=== PATIENT | female | born 1955 | race Caucasian/White ===

== ENCOUNTER 2020-01-19 16:29 | Emergency (ER) | payer OTHER, SELFPAY ==
[2020-01-19 16:30] VITALS: BP 140/90; PULSE 87; RESP 15; TEMP 36.3; O2SAT 97; BMI 24.0
--- NOTE | 2020-01-19 17:42 | RAD_ITS ---
STUDY: X-RAY - LUMBAR SPINE REASON FOR EXAM: Female, 64 years old. FALL TODAY OFF DECORATIVE BRIDGE OVER WATER FEATURE IN THEIR LANDSCAPE. LANDED ON RT POSTERIOR UPPER ILIAC CREST AREA. PAIN THERE AND IN LOWER BACK RADIATING SUPERIOR. TECHNIQUE: 3 view(s) of the lumbar spine were obtained. COMPARISON: None FINDINGS: Normal lumbar lordosis. There is no substantial scoliosis. There is a normal alignment of the vertebrae. Normal vertebral bodies and endplates. Degenerative disc disease at the L5-S1 level. Diffuse facet disease. Vascular calcifications. RAD/Lumbar Spine 2 or 3 Views IMPRESSION: No acute osseous injury is evident. If there is further clinical concern for a radiographically occult spinal fracture, consider CT correlation if possible. Electronically Signed: Armen Law MD at 18:26 EDT Tel , Service support ,
[2020-01-19] MEDS: Morphine 4 MG/ML Syringe IM (17:43)
[2020-01-19 17:45] VITALS: O2SAT 98
--- NOTE | 2020-01-19 17:51 | ED.VISSUMM ---
- ER Visit Summary Date of Service: 01/19/20 Chief Complaint: Back pain History of Present Illness: The patient is a 64 F who presents with back pain that began today. Patient slipped and fell in her yard today. Patient states she fell backwards and landed on a wooden bridge. Patient states her pain is localized to the lower lumbar area. Patient describes the pain as sharp, aching, and throbbing. Patient states the pain is worse with standing, walking, and sitting. Patient states the pain is better when she lays flat. Patient states she has some paresthesias going down her right leg. Patient denies any weakness. Patient denies any bowel or bladder changes. Patient denies any head injury or loss of consciousness. Patient denies any saddle anesthesia. Physical Examination: Vital signs are stable. Patient is afebrile. Patient is in no acute distress. Musculoskeletal exam reveals tenderness over the right lumbar paraspinal muscles. There is some mild midline tenderness. There is some mild tenderness over the right iliac crest area. There is no obvious deformity noted. Range of motion was limited in all motions of the lumbar spine secondary to pain. Strength is 5/5 bilateral lower extremities. There are no sensory deficits noted. Test Results: X-rays of the lumbar spine were obtained. There is no acute fracture. These were interpreted by the radiologist and reviewed by myself. Emergency Department Course and Treatment: Patient was given a dose of morphine here. Patient is feeling better on reevaluation. Patient was given a prescription for Percocet. Patient was also given a prescription for Valium to take as a muscle relaxer at bedtime as needed. Patient was instructed to use ice to the area. Patient was instructed to follow-up with her primary care physician in 5 to 7 days. Patient understood and was agreeable with the plan. All questions were answered. Disposition: Discharge home Impression: 1. Lumbosacral strain This note was generated with [employer] dictation software. It may contain incorrect words, spelling, and punctuation that were not noted in review of the chart prior to signing ED Disposition - Plan for ED Patient: Disposition: Home or Assisted Living Diagnosis: Lumbosacral strain Instructions: ED LUMBAR SPRAIN/STRAIN Prescriptions: Oxycodone HCl/Acetaminophen [Percocet 5/325] 1 tab PO Q6H PRN PRN 3 Days #12 tab PRN Reason: Pain Prescription Printed Diazepam [Valium] 5 mg PO QHS PRN PRN #10 tab PRN Reason: Muscle Spasm Prescription Printed Referrals: Clarence Hodge DO [Primary Care Provider] - 5-7 Days
[2020-01-19 18:42] VITALS: BP 138/4; PULSE 69; RESP 16; O2SAT 97
== END 2020-01-19 18:51 | disposition home or self-care (01) ==
PROVIDERS: Emergency Provider Emergency Medicine; PCP Family Medicine
DX: S39.012A Strain of muscle, fascia and tendon of lower back, initial encounter (principal); W01.0XXA Fall on same level from slipping, tripping and stumbling without subsequent striking against object, initial encounter; E03.9 Hypothyroidism, unspecified; F17.210 Nicotine dependence, cigarettes, uncomplicated
CPT/HCPCS: 72100; 96372; 99281

== ENCOUNTER 2023-01-07 07:51 | Day surgery (SDC) | payer MEDICARE, SELFPAY ==
[2023-01-07] MEDS: Lactated Ringers 1,000 ML 15 ML IV (08:19)
[2023-01-07 08:20] VITALS: BP 145/85; PULSE 73; RESP 16; TEMP 36.7; O2SAT 98; BMI 24.5
--- NOTE | 2023-01-07 09:04 | HP.PCM_ITS ---
HPI - General General Date of Admission: 01/07/23 Date of Service: 01/07/23 Chief Complaint: Screening colonoscopy HPI Narrative ADRIEN HIGGINS, is a 67 F who presents today for screening colonoscopy. She is not have any abdominal pain. She not have any nausea, vomiting or diarrhea. She had a colonoscopy over 10 years ago and it was normal. All other 16 review systems are negative except those are positive mentioned HPI. [facility] Medical History Arthritis Asthma Back pain Cervicalgia Gastric reflux High cholesterol History of ischemic colitis History of pain when walking History of uterine fibroid Hypercholesterolemia Hypertension Injury of head and neck Ischemic colitis Post-menopausal Smoker Thyroid disease Home Medications levothyroxine 75 mcg tablet 75 mcg PO DAILY 01/19/20 [History Last Taken 01/07/23] albuterol sulfate 90 mcg/actuation aerosol inhaler 2 puff inhalation 4X/DAY PRN ASTHMA 11/05/22 [History Last Taken Unknown] ascorbic acid (vitamin C) 500 mg tablet 500 mg PO DAILY 11/05/22 [History Last Taken 01/06/23] cyanocobalamin (vitamin B-12) 5,000 mcg disintegrating tablet 5,000 mcg PO DAILY 11/05/22 [History Last Taken 01/06/23] elderberry fruit 350 mg capsule 350 mg PO DAILY 11/05/22 [History Last Taken 01/06/23] estradiol 0.01% (0.1 mg/gram) vaginal cream (Estrace) 1 g vaginal 2XW 11/05/22 [History Last Taken 01/06/23] fluticasone 250 mcg-salmeterol 50 mcg/dose blistr powdr for inhalation (Wixela Inhub) 1 inh inhalation BID 11/05/22 [History Last Taken 01/07/23] fluticasone propionate 50 mcg/actuation nasal spray,suspension (Children's Flonase Allergy Relief) 1 spray intranasal DAILY PRN allergy symptoms 11/05/22 [History Last Taken Unknown] gemfibrozil 600 mg tablet 600 mg PO BID 11/05/22 [History Last Taken 01/06/23] glucosamine [id number] diamond 1,500 mg-400 unit-100 mg tablet (Osteo Bi- Flex (5-Loxin)) 1 tab PO DAILY 11/05/22 [History Last Taken 01/06/23] loratadine 10 mg tablet (Allergy Relief (loratadine)) 10 mg PO DAILY 11/05/22 [History Last Taken Unknown] montelukast 10 mg tablet (Singulair) 10 mg PO DAILY 11/05/22 [History Last Taken 01/06/23] Allergy/AdvReac Type Severity Reaction Status Date / Time methylprednisolone Allergy Severe Anaphylaxis Verified 01/07/23 08:18 oxycodone [From Roxicodone] Allergy Severe Rash Verified 01/07/23 08:18 atorvastatin Allergy Nausea/Vom/ Verified 01/07/23 08:18 Diarrhea azithromycin Allergy Nausea Verified 01/07/23 08:18 ciprofloxacin Allergy Diarrhea Verified 01/07/23 08:18 Sulfa (Sulfonamide Allergy Hives Verified 01/07/23 08:18 Antibiotics) Statins AdvReac Nausea/Vom/ Uncoded 11/05/22 11:51 Diarrhea Surgical History Hx of colonoscopy Hx of foot surgery Hx of hysterectomy Hx of surgical procedure Social History (Updated 11/05/22 @ 11:32 by Batsheva Rodarte) Smoking Status: Light Smoker (<10/day) ROS Review of Systems ROS Unobtainable: other Constitutional Constitutional: Denies fatigue, fever(s), poor appetite, weight gain or weight loss ENT HEENT: Denies mouth lesions Cardiovascular Cardiovascular: Denies abdominal bloating, abdominal edema or abdominal pain Respiratory/Chest Respiratory/Chest: Denies change in mental status, change in phlegm color, chest congestion or chest tightness Gastrointestinal Gastrointestinal: Denies belching, bloating, change in bowel habits, change in stool character, chewing difficulty, coffee ground emesis, constipation, cramping, diarrhea, dyspepsia, dysphagia, early satiety, excessive flatus, fecal incontinence, heartburn, hematemesis, hematochezia, hemorrhoids, loose stools, melena, nausea, odynophagia, rectal bleeding, tenesmus, vomiting or weight changes Genitourinary Genitourinary: Denies abdominal discomfort, burning urination or itching Musculoskeletal Musculoskeletal: Reports as per HPI; Denies muscle weakness or myalgias Integumentary Integumentary: Denies jaundice Neurologic Neurologic: Denies lack of coordination or weakness Psychiatric Psychiatric: Denies confusion, depression, memory loss, mood swings, paranoia or suicidal ideation Endocrine Endocrinology: Denies systems reviewed and no addt'l complaints, except as documented Hematologic/Lymphatic Hematologic/Lymphatic: Denies anemia, easy bleeding, easy bruising or lymphadenopathy Allergic/Immunologic Allergic/Immunologic: Denies systems reviewed and no addt'l complaints, except as documented Vital Signs Vital Signs Vital Signs: 01/07/23 08:20 01/07/23 08:20 Temperature 98.1 F Temperature Source Temporal Pulse Rate 73 Respiratory Rate 16 Respiratory Pattern Normal Blood Pressure 145/85 H Blood Pressure Mean 105 Blood Pressure Source Monitor Blood Pressure Position Semi-Fowlers Blood Pressure Location Left Arm Pulse Ox 98 Oxygen Delivery Method Room Air Weight Weight: 143 lb 4.807 oz Body Mass Index (BMI) 24.5 Physical Exam Const alert General Appearance: cooperative Orientation / Consciousness: oriented to person HEENT hearing grossly normal bilaterally Head and Scalp: normal to inspection Face and Sinus: face symmetric Nose: external nose normal Mouth: oral and palatal mucosa normal Eyes conjunctivae normal General Eye: normal appearance of both eyes Neck full ROM General: normal visual inspection Lymph Lymphatic: no lymphadenopathy noted Chest inspection of chest normal and palpation of chest normal Chest: symmetrical chest wall rise Resp normal respiratory effort Effort and Inspection: able to speak in complete sentences Cardio regular rate GI non-distended Percussion: normal to percussion Rectal Exam: deferred Neuro Speech: speech normal Gait (Neuro): normal gait Assessment & Plan Assessment/Plan (1) Encounter for screening for malignant neoplasm of colon: PLAN: She was explained alternatives, risk, benefits include not withstanding bleeding, infection, sepsis, perforation, need for emergent urgent . She well have an ASA of 2.
--- NOTE | 2023-01-07 09:28 | OP.COLON_ITS ---
Patient Name: Linda Newberry Procedure Date: 01/07/2023 9:03 AM Date of : 1955 Age: 67 Procedure: Colonoscopy Indications: Screening for colorectal malignant neoplasm Providers: John Arciniega DO Referring MD: Dmitriy Rai Medicines: Monitored Anesthesia Care Patient Profile: This is a 67 year old female. Refer to note in patient chart for documentation of history and physical. Last Colonoscopy: more than 10 years ago. Complications: No immediate complications. Procedure: Pre-Anesthesia Assessment: - Prior to the procedure, a History and Physical was performed, and patient medications and allergies were reviewed. The patient is competent. The risks and benefits of the procedure and the sedation options and risks were discussed with the patient. All questions were answered and informed consent was obtained. Patient identification and proposed procedure were verified by the physician in the pre-procedure area. Mental Status Examination: alert and oriented. Airway Examination: normal oropharyngeal airway and neck mobility. Respiratory Examination: clear to auscultation. CV Examination: normal. Prophylactic Antibiotics: The patient does not require prophylactic antibiotics. Prior Anticoagulants: The patient has taken no anticoagulant or antiplatelet agents. ASA Grade Assessment: II - A patient with mild systemic disease. After reviewing the risks and benefits, the patient was deemed in satisfactory condition to undergo the procedure. The anesthesia plan was to use monitored anesthesia care (MAC). Immediately prior to administration of medications, the patient was re-assessed for adequacy to receive sedatives. The heart rate, respiratory rate, oxygen saturations, blood pressure, adequacy of pulmonary ventilation, and response to care were monitored throughout the procedure. The physical status of the patient was re-assessed after the procedure. After I obtained informed consent, the scope was passed under direct vision. Throughout the procedure, the patient's blood pressure, pulse, and oxygen saturations were monitored continuously. The Colonoscope was introduced through the anus and advanced to the cecum, identified by appendiceal orifice and ileocecal valve. The colonoscopy was performed without difficulty. The patient tolerated the procedure well. The quality of the bowel preparation was adequate. The ileocecal valve, appendiceal orifice, and rectum were photographed. Scope In: 9:10:31 AM Scope Withdrawal Time 0 hours 9 minutes 35 seconds Scope Out: 9:23:42 AM Total Procedure Duration Time 0 hours 13 minutes 11 seconds Findings: The perianal and digital rectal examinations were normal. Multiple small and large-mouthed diverticula were found in the recto-sigmoid colon and sigmoid colon. The exam was otherwise without abnormality on direct and retroflexion views. Impression: - Diverticulosis in the recto-sigmoid colon and in the sigmoid colon. - The examination was otherwise normal on direct and retroflexion views. - No specimens collected. Recommendation: - Discharge patient to home. - Resume previous diet. - Continue present medications. - Repeat colonoscopy in 10 years for screening purposes. Procedure Code(s): --- Professional --- G0121, Colorectal cancer screening; colonoscopy on individual not meeting criteria for high risk CPT copyright 2021 [employer]. All rights reserved. The codes documented in this report are preliminary and upon health and fitness professor review may be revised to meet current compliance requirements. John Arciniega DO 01/07/2023 9:28:28 AM This report has been signed electronically. Number of Addenda: 0 Note Initiated On: 01/07/2023 9:03 AM
[2023-01-07 09:29] VITALS: BP 105/73; BP 145/85; PULSE 79; RESP 16; TEMP 36.5; O2SAT 97
--- NOTE | 2023-01-07 09:29 | OP.CCLET_ITS ---
01/07/2023 Dmitriy Rai Re : Colonoscopy procedure for Linda Newberry Dear Fredi This procedure was performed on Saturday, January 07, 2023. My impressions and recommendations are as follows: Impressions : - Diverticulosis in the recto-sigmoid colon and in the sigmoid colon. - The examination was otherwise normal on direct and retroflexion views. - No specimens collected. Recommendations : - Discharge patient to home. - Resume previous diet. - Continue present medications. - Repeat colonoscopy in 10 years for screening purposes. My findings are described in the full procedure note, which is enclosed. If I can be of further assistance, please feel free to contact me at . Sincerely, John Arciniega, 01/07/2023 9:28:28 AM This report has been signed electronically.
[2023-01-07 09:35] VITALS: BP 109/80; BP 145/85; PULSE 71; RESP 16; O2SAT 97
[2023-01-07 09:40] VITALS: BP 117/64; BP 145/85; PULSE 71; RESP 16; O2SAT 99
[2023-01-07 09:46] VITALS: BP 124/62; BP 145/85; PULSE 75; RESP 16; TEMP 36.7; O2SAT 98
[2023-01-07 10:05] VITALS: BP 145/85
== END 2023-01-07 10:15 | disposition home or self-care (01) ==
LOC: EN 07:55 → AC 07:55
PROVIDERS: PCP Family Medicine; Referring Provider Family Medicine; Visit Provider Internal Medicine Gastroenterology
PROC: 0DJD8ZZ Inspection of Lower Intestinal Tract, Via Natural or Artificial Opening Endoscopic (ICD-10-PCS; CPT 45378; principal; 2023-01-07 08:55)
DX: Z12.11 Encounter for screening for malignant neoplasm of colon (principal); K57.30 Diverticulosis of large intestine without perforation or abscess without bleeding; I10 Essential (primary) hypertension; F17.200 Nicotine dependence, unspecified, uncomplicated; E78.00 Pure hypercholesterolemia, unspecified; E07.9 Disorder of thyroid, unspecified
CPT/HCPCS: G0121; J7120

== ENCOUNTER 2023-11-26 21:13 | Emergency (ER) | payer MEDICARE, SELFPAY ==
[2023-11-26 21:14] VITALS: PULSE 100; RESP 19; TEMP 36.3; O2SAT 98
--- NOTE | 2023-11-26 21:30 | RAD_ITS ---
INDICATION: pain EXAMINATION/TECHNIQUE: X-RAY - LEFT XR Ankle Min 3 Views COMPARISON: None. FINDINGS: 3 views of the left ankle. Subtle, minimally displaced fracture off the tip of the distal fibula with moderate overlying soft tissue swelling of the lateral malleolus. No other acute osseous abnormality. Small chronic appearing rounded ossicle off the medial malleolus. Great toe metatarsal plate and screw construct, only partially imaged, although no obvious hardware complication. Achilles enthesophyte. RAD/Ankle min 3 Views IMPRESSION: Left distal fibular fracture. Electronically Signed: Rogelio Burkett MD at 22:01 EDT ,
--- NOTE | 2023-11-26 23:27 | EDS_ITS ---
HPI History of Present Illness Chief Complaint: Lower Extremity Injury Informant: patient Narrative Narrative: 68-year-old female presenting to the emergency room with left ankle pain. 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 She states she felt a pop. She states she was able to bear some weight but painful. She notes she has had prior bunionectomy surgery through [facility]. She has seen [facility] in the past. [facility] Medical History Post-menopausal Thyroid disease Arthritis High cholesterol Back pain Injury of head and neck Ischemic colitis Gastric reflux Smoker Asthma History of pain when walking Hypertension History of uterine fibroid Hypercholesterolemia Cervicalgia History of ischemic colitis Home Medications ?Medication ?Instructions ?Recorded ?Last Taken ?Type levothyroxine 75 mcg tablet 75 mcg PO DAILY 01/19/20 01/07/23 History albuterol sulfate 90 mcg/actuation 2 puff inhalation 4X/DAY PRN ASTHMA 11/05/22 Unknown History aerosol inhaler ascorbic acid (vitamin C) 500 mg 500 mg PO DAILY 11/05/22 01/06/23 History tablet cyanocobalamin (vitamin B-12) 5,000 mcg PO DAILY 11/05/22 01/06/23 History 5,000 mcg disintegrating tablet elderberry fruit 350 mg capsule 350 mg PO DAILY 11/05/22 01/06/23 History estradiol 0.01% (0.1 mg/gram) 1 g vaginal 2XW 11/05/22 01/06/23 History vaginal cream (Estrace) fluticasone 250 mcg-salmeterol 50 1 inh inhalation BID 11/05/22 01/07/23 History mcg/dose blistr powdr for inhalation (Wixela Inhub) fluticasone propionate 50 1 spray intranasal DAILY PRN 11/05/22 Unknown History mcg/actuation nasal allergy symptoms spray,suspension (Children's Flonase Allergy Relief) gemfibrozil 600 mg tablet 600 mg PO BID 11/05/22 01/06/23 History glucosamine [id number] 1 tab PO DAILY 11/05/22 01/06/23 History diamond 1,500 mg-400 unit-100 mg tablet (Osteo Bi-Flex (5-Loxin)) loratadine 10 mg tablet (Allergy 10 mg PO DAILY 11/05/22 Unknown History Relief (loratadine)) montelukast 10 mg tablet 10 mg PO DAILY 11/05/22 01/06/23 History (Singulair) Allergy/AdvReac Type Severity Reaction Status Date / Time methylprednisolone Allergy Severe Anaphylaxis Verified 11/26/23 21:14 oxycodone (From Roxicodone) Allergy Severe Rash Verified 11/26/23 21:14 atorvastatin Allergy Nausea/Vom/ Verified 11/26/23 21:14 Diarrhea azithromycin Allergy Nausea Verified 11/26/23 21:14 ciprofloxacin Allergy Diarrhea Verified 11/26/23 21:14 Sulfa (Sulfonamide Allergy Hives Verified 11/26/23 21:14 Antibiotics) Statins AdvReac Nausea/Vom/ Uncoded 11/05/22 11:51 Diarrhea Surgical History Hx of surgical procedure Hx of hysterectomy Hx of foot surgery Hx of colonoscopy Social History Smoking Status: Unknown if ever smoked ROS ROS ED Constitutional Constitutional ED: Denies chills, fever(s) or weight loss Eyes Eyes: Denies change in vision or diplopia ENT ENT ED: Denies ear pain, rhinorrhea or sore throat Cardiovascular Cardiovascular: Denies chest pain, orthopnea, palpitations or racing heartbeat Respiratory/Chest Respiratory/Chest: Denies cough, dyspnea or orthopnea Gastrointestinal Gastrointestinal: Denies abdominal pain, diarrhea, nausea or vomiting Genitourinary Genitourinary ED: Denies dysuria, hematuria or urinary frequency Musculoskeletal Musculoskeletal: Reports other Details: Left ankle pain ; Denies arthralgias or myalgias Integumentary Denies abscess or rash Neurologic Neurologic: Denies headache(s) or weakness Psychiatric Psychiatric: Denies anxiety, depression, suicidal ideation or suicidal thoughts Endocrine Endocrinology: Denies polydipsia, polyphagia or polyuria Allergic/Immunologic Allergic/Immunologic ED: Denies mouth swelling, tongue swelling or urticaria EXAM Physical Exam Const Vital Signs: 11/26/23 21:14 Temperature 97.4 F L Temperature Source Temporal Pulse Rate 100 Respiratory Rate 19 H Pulse Ox 98 Oxygen Delivery Method Room Air Positive well nourished and well developed General Appearance ED: well developed HEENT Reports normocephalic, head/scalp atraumatic and moist mucous membranes Eyes PERRL and EOMs intact bilaterally Neck no lymphadenopathy, supple and no JVD Resp normal respiratory effort and clear to auscultation bilaterally Cardio regular rate, regular rhythm and no murmurs GI normal to inspection, nondistended, normoactive bowel sounds and non-tender Palpation: soft Back/Spine no CVA tenderness and normal ROM Extremity Extremity Narrative: Swelling and tenderness over the lateral malleolus on the left. Neurovascularly intact. No fibular head pain. No fifth metatarsal pain. General Extremety ED: Negative for edema General Extremity: Negative for edema Neuro oriented x3 and CN's II-XII intact bilaterally Sensorium / Orientation: alert Motor Exam: strength 5/5 throughout Psych mental status grossly normal Mood & Affect: Negative for depressed or tearful Skin no rashes or lesions noted and no wounds MDM MDM MDM Narrative Medical decision making narrative: Differential diagnosis includes but not limited to fracture ligamentous sprain strain tendon rupture/strain My independent interpretation of the plain films of the left ankle is a acute distal fibular fracture. Patient has a short boot orthosis which she would like to use. I think this is reasonable. I asked her if she would like to use crutches she does not feel that she would be able to but does have a cane at home. She does not wish narcotics but would like something to help the pain. We talked about icing and anti-inflammatories. I will give her a dose of Toradol here. She will follow-up with [facility] locally. History & Record Review Discussion w/independent historian: Patient Radiography Diagnostic Testing: Clinical Impression(s) from Imaging Studies Ankle X-Ray 11/26/23 21:30 IMPRESSION: Left distal fibular fracture. Electronically Signed: Rogelio Burkett MD at 22:01 EDT , Discharge Plan Triage Chief Complaint: Lower Extremity Injury ED Provider: Olman Loving Dx/Rx/DC Orders Clinical Impression: Fall, Fracture of distal end of fibula Instructions: ED Ankle Fracture, Distal Fibula Prescriptions: No Action albuterol sulfate 90 mcg/actuation HFA aerosol inhaler 2 puff inhalation 4X/DAY PRN (Reason: ASTHMA) ascorbic acid (vitamin C) 500 mg tablet 500 mg PO DAILY [id number] [Osteo Bi-Flex (5-Loxin)] 1,500-400-100 mg-unit-mg tablet 1 tab PO DAILY Rx Instructions: give after food/meal cyanocobalamin (vitamin B-12) 5,000 mcg tablet,disintegrating 5,000 mcg PO DAILY elderberry fruit 350 mg capsule 350 mg PO DAILY estradiol [Estrace] 0.01 % (0.1 mg/gram) cream 1 g vaginal 2XW fluticasone propionate [Children's Flonase Allergy Rlf] 50 mcg/actuation spray,suspension 1 spray intranasal DAILY PRN (Reason: allergy symptoms) Rx Instructions: administer into each nostril fluticasone propion-salmeterol [Wixela Inhub] 250-50 mcg/dose blister with device 1 inh inhalation BID gemfibrozil 600 mg tablet 600 mg PO BID loratadine [Allergy Relief (loratadine)] 10 mg tablet 10 mg PO DAILY montelukast [Singulair] 10 mg tablet 10 mg PO DAILY levothyroxine 75 MCG tablet 75 mcg PO DAILY Primary Care Provider: Dmitriy Rai Referrals: Dmitriy Rai DO [Primary Care Provider] - Gucci Harrington MD [Med Staff - Active Staff] - As soon as possible Activity Restrictions/Additional Instructions: Please wear your boot if you are attempting to do any weightbearing. Print Language: Thai Disposition Disposition: Home, Self Care
[2023-11-26] MEDS: Ketorolac 60 MG/2 ML Vial IM (23:42)
== END 2023-11-26 23:52 | disposition home or self-care (01) ==
LOC: ED 23:29
PROVIDERS: Emergency Provider Emergency Medicine; PCP Family Medicine; Visit Provider Emergency Medicine
DX: S82.402A Unspecified fracture of shaft of left fibula, initial encounter for closed fracture (principal); E78.00 Pure hypercholesterolemia, unspecified; I10 Essential (primary) hypertension; W01.0XXA Fall on same level from slipping, tripping and stumbling without subsequent striking against object, initial encounter; Y92.89 Other specified places as the place of occurrence of the external cause; J45.909 Unspecified asthma, uncomplicated
CPT/HCPCS: 73610; 96372; 99282